=== PATIENT | male | born 1985 | race American Indian/Alaskan Native ===

== ENCOUNTER 2022-03-10 14:25 | Emergency (ER) | payer MEDICARE, MEDICAID ==
[2022-03-10] MEDS ORDERED: traMADol 50 MG TAB PO ONE (23:34)
--- NOTE | 2022-03-11 00:32 | Emergency Department Report ---
ED General Adult HPI - General Chief complaint: Back Pain/Injury Stated complaint: FLANK PAIN Time Seen by Provider: 03/10/22 23:33 Source: patient, EMS Mode of arrival: Ambulatory Limitations: No Limitations - History of Present Illness Initial comments: Patient 36-year-old male who presents for bilateral flank pain body aches chills fever with nausea vomiting x4 days. No T-max noted at home no fever noted in triage today. Last nausea vomiting this afternoon. Last p.o. intake this afternoon. Symptoms are exacerbated by movement and activity. Symptoms are relieved nothing tried ,patient denies dysuria frequency or hematuria. No history of renal stones Severity scale (0 -10): 7 - Related Data Previous Rx's Medication Instructions Recorded Last Taken Type bisacodyL [Dulcolax suppos] 10 mg [place] QDAY PRN #5 supp.rect 03/11/22 Unknown Rx polyethylene glycoL 3350 [Miralax 17 gm PO BID PRN #14 packet 03/11/22 Unknown Rx 3350] Allergies Allergy/AdvReac Type Severity Reaction Status Date / Time Penicillins AdvReac Unknown Verified 03/10/22 14:39 ED Review of Systems ROS: Stated complaint: FLANK PAIN Other details as noted in HPI Constitutional: chills, fever, malaise Eyes: denies: eye pain, eye discharge, vision change ENT: denies: ear pain, throat pain Respiratory: denies: cough, shortness of breath, wheezing Cardiovascular: denies: chest pain, palpitations Endocrine: no symptoms reported Gastrointestinal: abdominal pain (Bilateral flank), nausea, vomiting Genitourinary: denies: urgency, dysuria Musculoskeletal: back pain Skin: denies: rash, lesions Neurological: denies: headache, weakness, paresthesias, vertigo Psychiatric: denies: anxiety, depression Hematological/Lymphatic: denies: easy bleeding, easy bruising ED Past Medical Hx - Past Medical History Additional medical history: glaucoma - Surgical History Additional Surgical History: hernia repair - Social History Smoking Status: Current Some Day Smoker Substance Use Type: None - Medications Home Medications: Home Medications Medication Instructions Recorded Confirmed Last Taken Type bisacodyL [Dulcolax suppos] 10 mg NJ QDAY PRN #5 supp.rect 03/11/22 Unknown Rx polyethylene glycoL 3350 [Miralax 17 gm PO BID PRN #14 packet 09/28/22 Unknown Rx 3350] ED Physical Exam - General Limitations: No Limitations General appearance: alert, in no apparent distress - Head Head exam: Present: normocephalic, normal inspection - Eye Eye exam: Present: normal appearance, PERRL, EOMI Pupils: Present: normal accommodation - ENT ENT exam: Present: mucous membranes moist - Neck Neck exam: Present: normal inspection, full ROM. Absent: tenderness, lymphadenopathy - Respiratory Respiratory exam: Present: normal lung sounds bilaterally. Absent: respiratory distress, wheezes - Cardiovascular Cardiovascular Exam: Present: regular rate, normal rhythm, normal heart sounds. Absent: systolic murmur, diastolic murmur, rubs, gallop - GI/Abdominal GI/Abdominal exam: Present: soft, normal bowel sounds. Absent: distended, tenderness, guarding, rebound, rigid, bruit, hernia - Rectal Rectal exam: Present: deferred - Extremities Exam Extremities exam: Present: normal inspection, full ROM, normal capillary refill. Absent: tenderness - Back Exam Back exam: Present: normal inspection, full ROM, CVA tenderness (R), CVA tenderness (L) - Neurological Exam Neurological exam: Present: alert, oriented X3, CN II-XII intact, normal gait - Expanded Neurological Exam Expanded Patient oriented to: Present: person, place, time Speech: Present: fluid speech Motor strength exam: RUE: 5, LUE: 5, RLE: 5, LLE: 5 Best Eye Response (Renata): (4) open spontaneously Best Motor Response (Renata): (6) obeys commands Best Verbal Response (Renata): (5) oriented [place] Total: 15 - Psychiatric Psychiatric exam: Present: normal affect, normal mood - Skin Skin exam: Present: warm, dry, intact, normal color. Absent: rash ED Course Vital Signs 03/10/22 14:37 Temperature 97.6 F Pulse Rate 84 Respiratory 18 Rate Blood Pressure 128/83 [Left] O2 Sat by Pulse 96 Oximetry ED Medical Decision Making - Lab Data Result diagrams: 03/11/22 00:23 03/11/22 00:23 - Radiology Data Radiology results: report reviewed, image reviewed LUMBAR SPINE 2 VIEWS INDICATION / CLINICAL INFORMATION: back pain. COMPARISON: None available. FINDINGS: VERTEBRAE: No acute fracture. No significant malalignment. DISC SPACES / FACET JOINTS:Mild L5-S1 disc height loss without other significant degenerative spondylosis. PARASPINAL SOFT TISSUES:No significant abnormality. ADDITIONAL FINDINGS: Moderate volume colonic stool suggestive of constipation without rectal fecal impaction or evidence for bowel obstruction. IMPRESSION: 1. No fracture or other acute process. 2. Moderate volume colonic stool suggestive of constipation without rectal fecal impaction or evidence for bowel obstruction. Signer Name: Maico Christine MD Signed: 03/11/2022 2:04 AM Workstation Name: [email or web address] Transcribed By: Dictated By: MAICO CHRISTINE MD Electronically Authenticated By: MAICO CHRISTINE MD Signed Date/Time: 03/11/22203 DD/ 2 TD/TT: - Medical Decision Making Lumbar x-ray demonstrating moderate stool loading without consistent with constipation. Labs noted normal plan DC to home with prescriptions. Hydrate as directed. Follow-up with primary care doctor in 2 to 3 days. Patient verbalized agreement understanding with discharge plan. Patient DC'd home in stable condition at this time. Critical care attestation.: If time is entered above; I have spent that time in minutes in the direct care of this critically ill patient, excluding procedure time. ED Disposition Clinical Impression: Flank pain Constipation Qualifiers: Constipation type: unspecified constipation type Qualified Code(s): K59.00 - Constipation, unspecified Disposition: 01 HOME / SELF CARE / HOMELESS Is pt being admited?: No Does the pt Need Aspirin: No Condition: Stable Instructions: Flank Pain, Adult, Constipation, Adult, Probiotics Additional Instructions: Take medications as prescribed, hydrate as directed, follow-up primary care doctor in 2 to 3 days. Return to emergency department should symptoms worsen Prescriptions: bisacodyL [Dulcolax suppos] 10 mg [place] QDAY PRN #5 supp.rect PRN Reason: Constipation polyethylene glycoL 3350 [Miralax 3350] 17 gm PO BID PRN #14 packet PRN Reason: Constipation Referrals: ELKE THOMAS MD [Primary Care Provider] - 3-5 Days Forms: Work/School Release Form(ED) Time of Disposition:
[2022-03-11 00:33] LABS: Bilirubin,Urine NEG (Negative); Blood,Urine NEG (Negative); Color,Urine Yellow (Yellow); Urobilinogen,Urine < 2 mg/dL (<2.0)
[2022-03-11 00:35] LABS: Bacteria,Urine 1+ /HPF (Negative); Mucus,Urine 1+ /HPF
[2022-03-11 00:57] LABS: Basophils # (Auto) 0.1 K/mm3 (0.0-0.1); Basophils % (Auto) 1.5 % (0.0-1.8); Eosinophils % (Auto) 1.1 % (0.0-4.3); Hematocrit 41.2 % (35.5-45.6); Hemoglobin 13.6 gm/dl (11.8-15.2); Lymphocytes # (Auto) 0.5 K/mm3 (1.2-5.4); Lymphocytes % (Auto) 13.3 % (13.4-35.0); Mean Corpuscular HGB Conc 33 % (32-34); Mean Corpuscular Volume 93 fl (84-94); Monocytes # (Auto) 0.4 K/mm3 (0.0-0.8); Monocytes % (Auto) 11.9 % (0.0-7.3); Platelet Count 292 K/mm3 (140-440); Red Blood Count 4.43 M/mm3 (3.65-5.03); Red Cell Distribution Width 13.8 % (13.2-15.2)
[2022-03-11 01:12] LABS: Alanine Aminotransferase 21 units/L (7-56); Albumin 4.5 g/dL (3.9-5); BUN/Creatinine Ratio 5; Blood Urea Nitrogen 6 mg/dL (9-20); Calcium 9.3 mg/dL (8.4-10.2); Hemolysis Index 7
--- NOTE | 2022-03-11 02:08 | XRay Report ---
LUMBAR SPINE 2 VIEWS INDICATION / CLINICAL INFORMATION: back pain. COMPARISON: None available. FINDINGS: VERTEBRAE: No acute fracture. No significant malalignment. DISC SPACES / FACET JOINTS:Mild L5-S1 disc height loss without other significant degenerative spondyl osis. PARASPINAL SOFT TISSUES:No significant abnormality. ADDITIONAL FINDINGS: Moderate volume colonic stool suggestive of constipation without rectal fecal im paction or evidence for bowel obstruction. IMPRESSION: 1. No fracture or other acute process. 2. Moderate volume colonic stool suggestive of constipation without rectal fecal impaction or evidenc e for bowel obstruction. Signer Name: Maico Corbett MD Signed: 03/11/2022 2:04 AM Workstation Name: [employer]
[2022-03-11] MEDS ORDERED: ONDANSETRON 4 MG ODT TAB PO ONE (02:24)
[2022-03-11 02:51] VITALS: BP 122/79
== END 2022-03-11 02:51 | disposition home or self-care (01) ==
LOC: ED 14:25
DX: K59.00 Constipation, unspecified (principal); R10.9 Unspecified abdominal pain; Z88.0 Allergy status to penicillin; F17.200 Nicotine dependence, unspecified, uncomplicated
CPT/HCPCS: 36415; 72100; 80053; 81001; 85025; 99284; J3490; Q0162